=== PATIENT | female | born 1990 | race Caucasian/White ===

== ENCOUNTER 2020-04-13 23:08 | Emergency (ER) | payer SELFPAY ==
[~2020-04-13] VITALS: Ht 154.9 cm; Wt 77.2 kg
--- NOTE | 2020-04-13 23:31 | NUR ---
Pt ambulatory to room. Pt in gown and placed on full monitors. Pt reports meth use around 2200 but denies other substance use. Pt reports feeling "out of body". Pt report she hasn't felt this way after using meth before. Pt reports she recently had an and nexplanon implant placed and has continued to bleed for approx 2 weeks. Pt reports being on antibiotics for BV. Pt is calm and cooperative with RN. Pt HR 130's. Call light within reach.
[2020-04-13] MEDS ORDERED: ETON68IM3 IMPLANT (23:33)
[2020-04-13] MEDS ORDERED: antibiotic PO (23:34)
--- NOTE | 2020-04-13 23:37 | NUR ---
PA at bedside.
[2020-04-13] MEDS ORDERED: PLEASE ENTER ALLERGIES MC SCH (23:45)
--- NOTE | 2020-04-13 23:54 | NUR ---
Lab at bedside.
--- NOTE | 2020-04-13 23:59 | NUR ---
Pt to xray with cleaning technician
[2020-04-14] MEDS ORDERED: LORazepam 1MG TABLET PO ONE
[2020-04-14 00:01] LABS: BASOPHILS # (AUTO) 0.02 x10^3/uL (0-0.1); BASOPHILS % (AUTO) 0 % (0-1); EOSINOPHILS # (AUTO) 0.02 x10^3/uL (0-0.4); EOSINOPHILS % (AUTO) 0 % (1-7); LYMPHOCYTES # (AUTO) 1.34 x10^3/uL (1-3.4); LYMPHOCYTES % (AUTO) 17 % (22-44); MD NO; MEAN CORPUSCULAR HEMOGLOBIN 31.4 pg (27.0-34.8); MEAN CORPUSCULAR HGB CONC 32.5 g/dL (32.4-35.8); MEAN CORPUSCULAR VOLUME 96.6 fL (80-100); MEAN PLATELET VOLUME 7.5 fL (7.4-10.4); MONOCYTES # (AUTO) 0.45 x10^3/uL (0.2-0.8); MONOCYTES % (AUTO) 6 % (2-9); NEUTROPHILS # (AUTO) 6.08 x10^3/uL (1.8-6.8); NEUTROPHILS % (AUTO) 77 % (42-75); PLATELET COUNT 290 x10^3/uL (130-400); RED CELL DISTRIBUTION WIDTH 12.6 % (9.6-15.2)
[2020-04-14] MEDS ORDERED: LORazepam 1MG TABLET ONE (00:11)
[2020-04-14 00:13] LABS: ANION GAP 6 mmol/L (5-15); CALCIUM 8.7 mg/dL (8.5-10.1); CHLORIDE 110 mmol/L (98-107)
[2020-04-14 00:16] LABS: TROPONIN I < 0.015 ng/mL (0.000-0.045)
--- NOTE | 2020-04-14 00:18 | NUR ---
Pt medicated per DEC. Pt remains on monitors. Warm blanket given. Call light within reach.
[2020-04-14 00:55] VITALS: BP 119/79
== END 2020-04-14 00:57 | disposition home or self-care (01) ==
LOC: ED 23:33
DX: F15.10 Other stimulant abuse, uncomplicated (principal); F17.210 Nicotine dependence, cigarettes, uncomplicated; F41.9 Anxiety disorder, unspecified; R00.0 Tachycardia, unspecified; R07.89 Other chest pain; R51 Headache; Z72.9 Problem related to lifestyle, unspecified
CPT/HCPCS: 36415; 71046; 80048; 82040; 84484; 85025; 93005; 99285; 99406

== ENCOUNTER 2020-06-09 18:20 | Emergency (ER) | payer MEDICAID ==
[~2020-06-09] VITALS: Ht 154.9 cm; Wt 75.0 kg
[~2020-06-09 18:20] MED LIST: ETON68IM3 IMPLANT; antibiotic PO
[2020-06-09 19:07] VITALS: BP 141/83
== END 2020-06-09 19:40 | disposition home or self-care (01) ==
LOC: ED 19:36
DX: S83.411A Sprain of medial collateral ligament of right knee, initial encounter (principal); X58.XXXA Exposure to other specified factors, initial encounter; Y93.89 Activity, other specified; Y92.89 Other specified places as the place of occurrence of the external cause; Y99.8 Other external cause status
CPT/HCPCS: 99283